=== PATIENT | female | born 1935 | race Caucasian/White ===

== ENCOUNTER 2019-01-15 11:52 | Emergency (ER) | payer MEDICARE, OTHER ==
--- NOTE | 2019-01-15 12:42 | ED ---
Complex/Multi-Sys Presentation - HPI Summary HPI Summary: This pt is an 83 y/o female presenting to [facility] c/o abdominal distension for the past 1 month now. Pt reports she also has swelling in her legs and mild SOB. She denies fever, chest pain, nausea, vomiting, abd pain. Son states pt's PCP told them pt had ascites and it was probably related to her liver. Pt was then referred to a director of intercollegiate athletics, Dr. Hernandez, who told them pt had more of a heart condition than a liver one. Pt was prescribed a diuretic with some relief of swelling in her legs. Her director of intercollegiate athletics also increased her diuretic dose. Per son, they were told that taking Amiodarone was damaging pt's liver. The last time pt saw Dr. Hernandez's INFORMATION WRITER was last week. Pt has an upcoming appointment in January 30 to replace her original pacemaker. - History Of Current Complaint Chief Complaint: EDAbdPain Hx Obtained From: Patient, Family/Telephone Engineer - Santhosh Gonzalez Onset/Duration: Lasting Weeks, Still Present Timing: Weeks Severity Currently: Moderate Location: Negative Aggravating Factor(s): nothing Alleviating Factor(s): nothing Associated Signs And Symptoms: Positive: SOB, Edema - in legs, Other - POSITIVE : abd distension.. Negative: Chest Pain, Nausea, Vomiting, Abdominal Pain, Fever - Allergies/Home Medications Allergies/Adverse Reactions: Allergies Allergy/AdvReac Type Severity Reaction Status Date / Time Sulfa (Sulfonamide Allergy Unknown Verified 01/15/19 13:34 Antibiotics) Reaction Details sulfamethoxazole Allergy Unknown Verified 01/15/19 13:34 [From Bactrim] Reaction Details trimethoprim [From Bactrim] Allergy Unknown Verified 01/15/19 13:34 Reaction Details Home Medications: Home Medications Acetaminophen TAB* [Tylenol TAB*] 650 mg PO Q6H PRN 01/15/19 [History Confirmed 01/15/19] Cholecalciferol (Vitamin D3) [Vitamin D3] 2,000 unit PO DAILY 01/15/19 [History Confirmed 01/15/19] Levothyroxine TAB* [Synthorid 112 MCG TAB*] 112 mcg PO QAM 01/15/19 [History Confirmed 01/15/19] Midodrine HCl 5 mg PO TID 01/15/19 [History Confirmed 01/15/19] Potassium Chloride [K-Tab ER] 64 meq PO DAILY 01/15/19 [History Confirmed ] Torsemide TAB* [Demadex 20 MG*] 20 mg PO QAM 01/15/19 [History Confirmed ] Warfarin TAB(*) [Coumadin TAB(*)] 1 - 2 mg PO DAILY 01/15/19 [History Confirmed 01/15/19] PMH/Surg Hx/FS Hx/Imm Hx Endocrine/Hematology History: Reports: Hx Thyroid Disease, Hx Anemia Denies: Hx Diabetes Cardiovascular History: Reports: Hx Atrial Fibrillation, Hx Hypercholesterolemia , Hx Hypertension, Hx Pacemaker/ICD - PUT IN 07/21/2015, Other Cardiovascular Problems/Disorders - a fib, orthostatic hypotension Denies: Hx Angina, Hx Congestive Heart Failure, Hx Coronary Artery Disease, Hx Myocardial Infarction, Hx Valvular Heart Disease Respiratory History: Denies: Hx Asthma, Hx Chronic Obstructive Pulmonary Disease (COPD) History: Denies: Hx Chronic Renal Failure, Hx Renal Disease Musculoskeletal History: Reports: Hx Arthritis - LEFT KNEE, Other Musculoskeletal History - BROKE LEFT FEMUR Comment Only: 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 SQAMOUS CELL CA, LT ANKLE. TONSILECTOMY Hx Anesthesia Reactions: No - Immunization History Immunizations Up to Date: Yes Infectious Disease History: No Infectious Disease History: Denies: Traveled Outside the [place] in Last 30 Days - Family History Known Family History: Positive: Cardiac Disease - Mother with mitral valve repair Family History: Father with lung CA - Social History Alcohol Use: None Alcohol Amount: recently quit Hx Substance Use: No Substance Use Type: Reports: None Hx Tobacco Use: Yes Smoking Status (MU): Former Smoker Have You Smoked in the Last Year: No Review of Systems Negative: Fever, Chills Negative: Chest Pain Positive: Shortness Of Breath Gastrointestinal: Other - POSITIVE: abdominal distension Negative: Abdominal Pain, Vomiting, Nausea Positive: Edema - in legs All Other Systems Reviewed And Are Negative: Yes Physical Exam - Summary Physical Exam Summary: VITAL SIGNS: Reviewed. GENERAL: Patient is a well-developed and nourished female who is lying comfortable in the stretcher. Patient is not in any acute respiratory distress. HEAD AND FACE: No signs of trauma. No ecchymosis, hematomas or skull depressions. No sinus tenderness. EYES: PERRLA, EOMI x 2, No injected conjunctiva, no nystagmus. EARS: Hearing grossly intact. Ear canals and tympanic membranes are within normal limits. MOUTH: Oropharynx within normal limits. NECK: Supple, trachea is midline, no adenopathy, no JVD, no carotid bruit, no c- spine tenderness, neck with full ROM. CHEST: Symmetric, no tenderness at palpation LUNGS: Decreased breath sounds in both bases of the lungs. CVS: Regular rate and rhythm, S1 and S2 present, no murmurs or gallops appreciated. ABDOMEN: Soft, non-tender. Abdominal distension. No rebound, no guarding, and no masses palpated. Bowel sounds are normal. EXTREMITIES: FROM in all major joints, no cyanosis or clubbing. Bilateral lower extremity edema. NEURO: Alert and oriented x 3. No acute neurological deficits. Speech is normal and follows commands. SKIN: Dry and warm Triage Information Reviewed: Yes Vital Signs On Initial Exam: Initial Vitals Temp Pulse Resp BP Pulse Ox 97.9 F 82 16 135/69 95 01/15/19 11:56 01/15/19 11:56 01/15/19 11:56 01/15/19 11:56 01/15/19 11:56 Vital Signs Reviewed: Yes Diagnostics - Vital Signs Vital Signs Temp Pulse Resp BP Pulse Ox 01/15/19 12:11 70 18 160/85 98 01/15/19 12:10 71 97 01/15/19 11:56 97.9 F 82 16 135/69 95 - Laboratory Result Diagrams: 01/15/19 12:51 01/15/19 12:51 Lab Statement: Any lab studies that have been ordered have been reviewed, and results considered in the medical decision making process. - Radiology Chest XR Radiology Interpretation Completed By: Radiologist Summary of Radiographic Findings: IMPRESSION: No active cardiopulmonary disease. Dr. Calles has reviewed this report. - Ultrasound No standard instances Ultrasound Interpretation Completed By: Radiologist Summary of Ultrasound Findings: Abdomen US IMPRESSION: Moderate amount of ascites is noted in all [address] Calles has reviewed this report. - EKG 12:46 Cardiac Rate: NL - at 66 bpm Summary of EKG Findings: Atrial paced at [address] elevations. Re-Evaluation - Re-Evaluation First Eval Re-Evaluation Time: 16:05 Comment: Reviewed lab, ultrasound, CXR results with pt and [id number]. Pt will be discharged home with follow up from her PCP tomorrow. Complex Multi-Symp Course/Dx Assessment/Plan: This pt is an 83 y/o female presenting to [facility] c/o abdominal distension for the past 1 month now. Pt reports she also has swelling in her legs and mild SOB. She denies fever, chest pain, nausea, vomiting, abd pain. Son states pt's PCP told them pt had ascites and it was probably related to her liver. Pt was then referred to a director of intercollegiate athletics, Dr. Hernandez, who told them pt had more of a heart condition than a liver one. Pt was prescribed a diuretic with some relief of swelling in her legs. Her director of intercollegiate athletics also increased her diuretic dose. Per son, they were told that taking Amiodarone was damaging pt's liver. The last time pt saw Dr. Hernandez's INFORMATION WRITER was last week. Pt has an upcoming appointment in January 30 to replace her original pacemaker. Blood work without any significant abnormality except for INR 2.13, BUN is 26, creatinine 1.1, glucose 148, AST 40, CRP of 23.8 and BNP 367. Urinalysis positive for UTI. Abdominal ultrasound impression: Moderate amount of ascites is noted in all 4 quadrants. The patient doesnt have any shortness of breath. Therefore, I do not believe that the patient needs paracentesis today. However, she will need to be scheduled for a paracentesis with a primary care physician as an outpatient. I discussed the findings and test results and the plan with the patient and the patients [id number], and they understand and agree. The patient is hemodynamically stable, therefore the patient will be discharged home with follow-up from her PCP. Patient reports that she has an appointment to see her PCP tomorrow. - Diagnoses Provider Diagnoses: Ascites, UTI (urinary tract infection) Discharge - Sign-Out/Discharge Documenting (check all that apply): Patient Departure - Discharge home Patient Received Moderate/Deep Sedation with Procedure: No - Discharge Plan Condition: Stable Disposition: HOME Prescriptions: Cephalexin CAP* [Keflex CAP*] 500 mg PO TID #21 cap Patient Education Materials: Urinary Tract Infection in Women (ED), Ascites (ED ) Referrals: uPshpa Juares MD [Primary Care Provider] - Additional Instructions: FOLLOW UP WITH YOUR PRIMARY CARE PROVIDER IN 2-3 DAYS. RETURN TO THE ED FOR ANY NEW OR WORSENING SYMPTOMS. - Attestation Statements Document Initiated by Scribe: Yes Documenting Scribe: Sherrie Moeller Provider For Whom Scribe is Documenting (Include Credential): Derek Calles MD Scribe Attestation: Sherrie Allen scribed for Derek Calles MD on 01/15/19 at 1744. Status of Scribe Document: Ready
[2019-01-15 13:02] LABS: ABS Basophils 0.1 10^3/ul (0-0.2); ABS Lymphocytes 1.3 10^3/ul (1.0-4.8); ABS Monocytes 0.6 10^3/ul (0-0.8); ABS Neutrophils 6.4 10^3/ul (1.5-7.7); Eosinophil % 0.3 %; Hematocrit 38 % (35-47); Hemoglobin 12.6 g/dL (12.0-16.0); Lymphocyte % 15.3 %; Mean Corpuscular HGB Conc 33 g/dL (31-36); Mean Corpuscular Hemoglobin 33 pg (27-31); Mean Corpuscular Volume 99 fL (80-97); Mean Platelet Volume 8.3 fL (7.4-10.4); Platelet Count 227 10^3/uL (150-450); Red Blood Count 3.87 10^6 /uL (3.70-4.87); Red Cell Distribution Width 15 % (10-15); White Blood Count 8.3 10^3/uL (3.5-10.8)
[2019-01-15 13:02] LABS: Urine Appearance Cloudy; Urine Bacteria 1+ (Absent); Urine Bilirubin Negative (Negative); Urine Blood Negative (Negative); Urine Color Yellow; Urine Glucose Negative (Negative); Urine Ketones Negative (Negative); Urine Nitrite Positive (Negative); Urine Protein Negative (Negative); Urine Red Blood Cell Absent (Absent); Urine Specific Gravity 1.012 (1.010-1.030); Urine Squamous Epithelial Cell Present (Absent); Urine Urobilinogen Negative (Negative); Urine White Blood Cell 3+(>20/hpf) (Absent)
[2019-01-15 13:18] LABS: Albumin 2.9 g/dL (3.2-5.2); Albumin/Globulin Ratio 0.8 (1-3); BUN/Creatinine Ratio 23.6 (8-20); C Reactive Protein 23.88 mg/L (<8.01); Calcium 8.7 mg/dL (8.6-10.3); EGFR African American 57.7 (>60); EGFR Non-African American 47.7 (>60); Globulin 3.8 g/dL (2-4); Potassium 3.5 mmol/L (3.5-5.0); Total Bilirubin 1.1 mg/dL (0.2-1.0); Total Protein 6.7 g/dL (6.4-8.9)
[2019-01-15 13:22] LABS: CKMB ng/mL 1.2 ng/mL (0.6-6.3)
[2019-01-15 13:28] LABS: Activated Partial Thrombo Time 40.4 seconds (26.0-38.0); INR 2.13 (0.82-1.09)
[2019-01-15] MEDS ORDERED: cefTRIAXone(*) 1 GM in NS 0.9% 50 ML* 50 ML IVPB ONE (14:18)
[2019-01-15 16:26] VITALS: BP 162/85
--- NOTE | 2019-01-17 06:32 | PN ---
Progress Note - Progress Note Date of Service: 01/17/19 Note: Patient's urine culture grew Klebsiella pneumonia greater than 100,000. Patient placed on Keflex will wait for final culture for sensitivity.
--- NOTE | 2019-01-18 05:52 | PN ---
Progress Note - Progress Note Date of Service: 01/18/19 Note: Patient placed on Keflex. Final culture shows is sensitive to. No further action required.
== END 2019-01-15 16:24 | disposition home or self-care (01) ==
LOC: ED 11:52 → MERGE 11:52 → ED 16:24
DX: R18.8 Other ascites (principal); N39.0 Urinary tract infection, site not specified; E07.9 Disorder of thyroid, unspecified; I48.91 Unspecified atrial fibrillation; I10 Essential (primary) hypertension; Z95.810 Presence of automatic (implantable) cardiac defibrillator; Z79.01 Long term (current) use of anticoagulants; Z79.899 Other long term (current) drug therapy; Z87.891 Personal history of nicotine dependence
CPT/HCPCS: 36415; 71046; 76705; 80053; 81003; 81015; 82550; 82553; 83605; 83690; 83880; 84484; 85025; 85610; 85730; 86140; 87077; 87086; 87186; 93005; 96365; 99283; J0696

== ENCOUNTER 2019-01-27 12:55 | Observation (INO) | payer MEDICARE, OTHER ==
--- NOTE | 2019-01-27 13:17 | ED ---
Complex/Multi-Sys Presentation - HPI Summary HPI Summary: Patient is a 83 y/o F presenting to ED via EMS for N/V, possible seizure episode. EMS states that they received a call about the patient having episodes of vomiting. Upon arrival, EMS reports that they were told that the [facility] her phthalic acid purifier when she had what the phthalic acid purifier describes as seizure-like activity. However, it is uncertain if the patient actually had a seizure. The patient had a stroke in 2014 with Sx that are reported to have been similar to those exhibited by the patient during today's episode. Patient had a negative [place] scale and is alert and oriented x3 at present. EMS notes that the patient was somewhat disoriented upon arrival but not to the point of her being in a post-ictal state. EMS reports that the patient had decreased left-sided talent development manager strength as a residual from her 2015 stroke. Heavy Equipment Plumbing Supervisor had stated that the patient had been "sick" all week but the patient refutes this. Nausea is reported to have resolved. BP of 160/85, BG 167. PMHx of afib. Patient is unsure of home medications, she notes that her caregiver will bring a list of her medications. On triage, pain is denied, nothing is noted to aggravate/alleviate Sx. Allergies reviewed. - History Of Current Complaint Hx Obtained From: Patient Onset/Duration: Lasting Weeks - phthalic acid purifier had reported that the patient had been sick for the past week but the patient denies this, Resolved Timing: Intermittent, Lasting:, Weeks - phthalic acid purifier had reported that the patient had been sick for the past week but the patient denies this Severity Currently: None Aggravating Factor(s): nothing Alleviating Factor(s): nothing Associated Signs And Symptoms: Positive: Nausea, Vomiting, Other - positive - possible seizure activity - Allergies/Home Medications Allergies/Adverse Reactions: Allergies Allergy/AdvReac Type Severity Reaction Status Date / Time Sulfa (Sulfonamide Allergy Unknown Verified 01/15/19 13:34 Antibiotics) Reaction Details sulfamethoxazole Allergy Unknown Verified 01/15/19 13:34 [From Bactrim] Reaction Details trimethoprim [From Bactrim] Allergy Unknown Verified 01/15/19 13:34 Reaction Details PMH/Surg Hx/FS Hx/Imm Hx Endocrine/Hematology History: Reports: Hx Thyroid Disease, Hx Anemia Denies: Hx Diabetes Cardiovascular History: Reports: Hx Atrial Fibrillation, Hx Hypercholesterolemia , Hx Hypertension, Hx Pacemaker/ICD, Other Cardiovascular Problems/Disorders - a fib, orthostatic hypotension Denies: Hx Angina, Hx Congestive Heart Failure, Hx Coronary Artery Disease, Hx Myocardial Infarction, Hx Valvular Heart Disease Respiratory History: Denies: Hx Asthma, Hx Chronic Obstructive Pulmonary Disease (COPD) History: Denies: Hx Chronic Renal Failure, Hx Renal Disease Musculoskeletal History: Reports: Hx Arthritis - LEFT KNEE, Other Musculoskeletal History - BROKE LEFT FEMUR Comment Only: 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 SQAMOUS CELL CA, LT ANKLE. TONSILECTOMY Hx Anesthesia Reactions: No - Family History Known Family History: Positive: Cardiac Disease - Mother with mitral valve repair Family History: Father with lung CA - Social History Alcohol Use: None Alcohol Amount: recently quit Hx Substance Use: No Substance Use Type: Reports: None Hx Tobacco Use: Yes Smoking Status (MU): Former Smoker Have You Smoked in the Last Year: No Review of Systems Positive: Vomiting, Nausea Neurological: Other - positive - possible seizure activity All Other Systems Reviewed And Are Negative: Yes Physical Exam - Summary Physical Exam Summary: Appearance: The patient is well-nourished in no acute distress and in no acute pain. Skin: The skin is warm and dry and skin color reflects adequate perfusion. HEENT: The head is normocephalic and atraumatic. The pupils are equal and reactive. The conjunctivae are clear and without drainage. Nares are patent and without drainage. Mouth reveals moist mucous membranes and the throat is without erythema and exudate. The external ears are intact. The ear canals are patent and without drainage. The tympanic membranes are intact. Neck: The neck is supple with full range of motion and non-tender. There are no carotid bruits. There is no neck vein distension. Respiratory: Chest is non-tender. Wheezes and upper respiratory sounds in both lung tarango. Cardiovascular: Heart is regular rate and rhythm. There is no murmur or rub auscultated. There is no peripheral edema and pulses are symmetrical and equal. Abdomen: The abdomen is soft and non-tender. There are normal bowel sounds heard in all four quadrants and there is no organomegaly palpated. Musculoskeletal: There is no back tenderness noted. Extremities are non-tender with full range of motion. There is good capillary refill. There is no peripheral edema or calf tenderness elicited. Neurological: Patient is alert and oriented to person, place and time. The patient has symmetrical motor strength in all four extremities. Cranial nerves are grossly intact. Deep tendon reflexes are symmetrical and equal in all four extremities. GCS 15, NIH 0 Psychiatric: The patient has an appropriate affect and does not exhibit any anxiety or depression. Triage Information Reviewed: Yes Vital Signs On Initial Exam: Initial Vitals Temp Pulse Resp BP Pulse Ox 97.9 F 73 24 155/70 94 01/27/19 13:02 01/27/19 13:02 01/27/19 13:02 01/27/19 13:02 01/27/19 13:02 Vital Signs Reviewed: Yes - Sandi Coma Scale Best Eye Response: 4 - Spontaneous Best Motor Response: 6 - Obeys Commands Best Verbal Response: 5 - Oriented Coma Scale Total: 15 Diagnostics - Laboratory Result Diagrams: 01/27/19 13:54 01/27/19 13:54 Lab Statement: Any lab studies that have been ordered have been reviewed, and results considered in the medical decision making process. - Radiology CXR Radiology Interpretation Completed By: Radiologist Summary of Radiographic Findings: IMPRESSION: No radiographic evidence for acute cardiopulmonary abnormality on this. portable chest x-ray. THIS REPORT WAS REVIEWED BY DR. WILSON. - EKG 1336 Cardiac Rate: Other Rate - EKG showed paced rhythm with rate of 80 BPM Summary of EKG Findings: EKG showed paced rhythm with rate of 80 BPM National Institutes Of Health - NIH Scale Level of Consciousness: Alert/Keenly Responsive Ask Patient the Month and His/Her Age: Both Correct Ask Pt to Open/Close Eyes and Neck Fitter/Release Non-Paretic Hand: Both Correctly Best Gaze (Only Horizontal Eye Movement): Normal Visual Field Testing: No Visual Loss Facial Paresis-Pt to Smile & Close Eyes or Grimace Symmetry: Normal/Symmetrical Motor Function - Right Arm: No Drift-Holds 10 Seconds Motor Function - Left Arm: No Drift-Holds 10 Seconds Motor Function - Right Leg: No Drift-Holds 10 Seconds Motor Function - Left Leg: No Drift-Holds 10 Seconds Limb Ataxia-Must be out of Proportion to Weakness Present: Absent Sensory (Use Pinprick to Test Arms/Legs/Trunk/Face): Normal Best Language (Describe Picture, Name Items): No Aphasia Dysarthria (Read Several Words): Normal Extinction and Inattention: No Abnormality Total Score: 0 Re-Evaluation - Re-Evaluation First Eval Re-Evaluation Time: 15:47 Comment: Results of labs and tests were discussed with patient. Will discuss patient's case with hospitalist. PO challenge to be done. Second Eval Re-Evaluation Time: 15:58 Comment: Patient failed PO challenge, patient is vomiting. Complex Multi-Symp Course/Dx Course Of Treatment: It was unclear to me whether Ms. De La Paz was syncopal and had seizure-like activity with some reproduction of her previous stoke manifestations while hypotensive or if she had a seizure related to the previous stroke. I asked the hospitalist to evaluate her. They consulted the neurologist Dr. Daigle who felt the patient should be transferred to rule out continuing or recurring seizures. - Diagnoses Provider Diagnoses: Syncope - Physician Notifications Discussed Care Of Patient With: Nikolas Milligan Time Discussed With Above Provider: 15:53 Instructed by Provider To: Other - 1553 - Patient's case was discussed with Dr. Milligan, hospitalist services to evaluate the patient. 1727 - Hospitalist PA reports that she has consulted with Dr. Daigle about the patient's case and the patient requires transfer to a higher level of care for EEG monitoring. Discharge - Sign-Out/Discharge Documenting (check all that apply): Sign-Out Patient Signing out patient TO: Armen Concepcion Receiving patient FROM: Armen Wilson Patient Received Moderate/Deep Sedation with Procedure: No - Discharge Plan Condition: Stable Referrals: Pushpa Juares MD [Primary Care Provider] - - Billing Disposition and Condition Condition: STABLE - Attestation Statements Document Initiated by Scribe: No Scribe Documentation Reviewed: No
[2019-01-27 14:01] LABS: ABS Basophils 0.1 10^3/ul (0-0.2); ABS Lymphocytes 1.1 10^3/ul (1.0-4.8); ABS Monocytes 0.5 10^3/ul (0-0.8); ABS Neutrophils 7.8 10^3/ul (1.5-7.7); Eosinophil % 0.3 %; Hematocrit 40 % (35-47); Hemoglobin 13.2 g/dL (12.0-16.0); Lymphocyte % 11.4 %; Mean Corpuscular HGB Conc 33 g/dL (31-36); Mean Corpuscular Hemoglobin 33 pg (27-31); Mean Corpuscular Volume 99 fL (80-97); Mean Platelet Volume 8.3 fL (7.4-10.4); Platelet Count 280 10^3/uL (150-450); Red Cell Distribution Width 16 % (10-15); White Blood Count 9.5 10^3/uL (3.5-10.8)
[2019-01-27 14:06] LABS: INR 2.11 (0.82-1.09)
[2019-01-27 14:18] LABS: Albumin 2.8 g/dL (3.2-5.2); Albumin/Globulin Ratio 0.7 (1-3); BUN/Creatinine Ratio 26.5 (8-20); Calcium 9.1 mg/dL (8.6-10.3); EGFR African American 62.9 (>60); Magnesium 1.9 mg/dL (1.9-2.7); Potassium 4.7 mmol/L (3.5-5.0); Total Bilirubin 1.3 mg/dL (0.2-1.0); Total Protein 6.8 g/dL (6.4-8.9)
[2019-01-27 14:19] LABS: Troponin I 0.01 ng/mL (<0.04)
[2019-01-27 14:39] LABS: TSH (Thyroid Stimulating Horm) 24.63 mcIU/mL (0.34-5.60)
[2019-01-27] MEDS ORDERED: Ondansetron INJ* 2 MG/ML VIAL IV ONE (16:20)
[2019-01-27] MEDS ORDERED: Furosemide IV* 10 MG/ML 2 ML VIAL (20 MG) IV SLOW PU ONE (19:26)
--- NOTE | 2019-01-27 19:51 | ED ---
Progress - Progress Note Progress Note: Pt is a sign out from Dr. Wilson to Dr. Concepcion at shift change 1900 01/27/19 pending a transfer to another facility for an EEG. - Results/Orders Results/Orders: Pt received a brain CT at 2016 which shows No acute intracranial findings. Age- related atrophy and chronic white matter ischemic change. ED physician has reviewed this report. Re-Evaluation - Re-Evaluation First Eval Re-Evaluation Time: 15:47 Second Eval Re-Evaluation Time: 15:58 Course/Dx - Course Course Of Treatment: Pt is a sign out from Dr. Wilson to Dr. Concepcion at shift change 1900 01/27/19 pending a transfer to another facility for an EEG. The pt's brain CT was returned during this shift and found No acute intracranial findings. Age-related atrophy and chronic white matter. ischemic change. Pt was admitted to [facility] per Dr. Arauz. - Diagnoses Provider Diagnoses: Syncope - Provider Notifications Discussed Care Of Patient With: Keshav Arauz Time Discussed With Above Provider: 21:00 Instructed by Provider To: Admit As Inpatient Admit/Transition Orders Completed By ED Provider: Yes Discharge - Sign-Out/Discharge Documenting (check all that apply): Patient Departure - admitted All imaging exams completed and their final reports reviewed: Yes Patient Received Moderate/Deep Sedation with Procedure: No - Discharge Plan Condition: Stable Disposition: ADMITTED TO [facility] - Billing Disposition and Condition Condition: STABLE Disposition: Admitted to [facility] - Attestation Statements Document Initiated by Prudence: Yes Documenting Scribe: Benito Taylor Provider For Whom Prudence is Documenting (Include Credential): Armen Concepcion MD Scribe Attestation: Benito Allen scribed for Armen Concepcion MD on 01/28/19 at 0609. Scribe Documentation Reviewed: Yes Provider Attestation: The documentation as recorded by the Benito vogt accurately reflects the service I personally performed and the decisions made by Armen murphy MD Status of Scribe Document: Viewed
[2019-01-27] MEDS ORDERED: Ondansetron INJ* 2 MG/ML VIAL IV PRN (20:34)
[2019-01-27] MEDS ORDERED: Senna TAB PO PRN (20:34)
[2019-01-27] MEDS ORDERED: Al Hydrox/Mg Hydrox/Simet LIQ* 30 ML UDC PO PRN (20:34)
[2019-01-27] MEDS ORDERED: Acetaminophen TAB* 325 MG PO PRN (20:34)
[2019-01-27] MEDS ORDERED: Enoxaparin(*) 40 MG/0.4 ML SYR SUBCUT SCH (21:00)
[2019-01-27] MEDS ORDERED: Baclofen TAB* 10 MG PO SCH (22:00)
--- NOTE | 2019-01-27 22:41 | HP ---
CC: Dr. Juares; Dr. Olayinka Daigle * DATE OF ADMISSION: 01/27/19 REASON FOR CONSULT: Possible seizure. REQUESTING PROVIDER: Dr. Wilson. ATTENDING PROVIDER: Keshav Arauz MD * (DICTATED BY CRISSY MOSLEY) HISTORY OF PRESENT ILLNESS: Kinza De La Paz is an 83-year-old white female with past medical history significant for hypertension, paroxysmal atrial fibrillation, tachybrady syndrome with left chamber pacemaker, CVA with residual left-sided weakness, cardiomyopathy with ejection fraction 30%, non- alcoholic cirrhosis, hypothyroidism, and autonomic dysreflexia who presented to the emergency department due to being unresponsive in [facility] with her home health aide. The patient reports that she was feeling unwell when she was in [facility] and felt generally weak all over and then sat in her walker. She then does not have memory of the falling incident, but it was reported by her home health aide Sofie that she then became unresponsive and fell to the floor and was having shaking of her extremities. She lost control of her bowels and had a bowel movement and was biting her tongue as well. She was unresponsive during this incident. The patient again does not have memory of this. The patient and her family members report she has never had a seizure before leading up to this event and after this event today. She denies fever, chills, abdominal pain, hematemesis, and chest pain. She reports that she has some feelings of difficulty breathing. Additionally, she was feeling lightheaded leading up to this incident. They also reports that she vomited during her episode of loss of consciousness. Apparently, she has been having for several weeks mild difficulty breathing with exertion, which is why she has had echocardiogram and cardiac catheterization in the recent months. Reported additionally she had a paracentesis in early December performed by Dr. Rodriguez and removed 5.25 L of ascites fluid which apparently then reaccumulated in 10 days. The patient takes a long time to answer questions during history and the family reports that this is her unlike usual self. She does at times have difficultly following commands and the family additionally reports that this is unlike the patient's usual self. PAST MEDICAL HISTORY: 1. Hypertension. 2. Paroxysmal atrial fibrillation. 3. CVA with residual left-sided weakness. 4. Tachybrady syndrome with left chamber PPM. 5. Cardiomyopathy with ejection fraction of 30%. 6. Squamous cell skin cancer. 7. Hypothyroidism. 8. Frequent UTIs. 9. Hypercholesterolemia. 10. Cirrhosis, likely nonalcoholic. 11. Back pain. 12. Osteoarthritis. 13. Autonomic dysreflexia. 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 PAST SURGICAL HISTORY: 1. Breast biopsy. 2. Resection of squamous cell carcinoma. 3. Tonsillectomy. 4. Left ORIF tib fib. 5. Hip fracture repair. 6. Pacemaker placement. 7. Recent paracentesis in early December 2018. HOME MEDICATIONS: 1. Potassium chloride 8 mEq a.c. p.o. 2. Levothyroxine 125 mcg p.o. daily. 3. Baclofen 5 mg p.o. t.i.d. 4. Amiodarone 200 mg p.o. daily. 5. Midodrine 5 mg p.o. t.i.d. 6. Torsemide 20 mg p.o. daily. 7. Aldactone 50 mg p.o. daily. 8. Vitamin C SR 1000 mg p.o. daily. 9. Vitamin D3 2000 units p.o. daily. 10. Warfarin 1 mg p.o. daily. 11. Lipitor 20 mg daily. 12. Glucosamine/chondroitin 500/400 mg p.o. daily. ALLERGIES: SULFA and TRIMETHOPRIM. FAMILY HISTORY: Father at age 63 of lung cancer. Mother at 76 after CABG, had atrial fibrillation and coronary artery disease. SOCIAL HISTORY: The patient lives alone, her in 2016 due to stroke. She has a daughter, a son, an adopted daughter, and multiple stepchildren, several of which were involved in her life. She has a home health aide who is at her home almost daily, but not 24x7. She denies current tobacco use, alcohol use, or illicit drug use. She did quit smoking for about 50 years ago and had less than 10 years of smoking. REVIEW OF SYSTEMS: An 11-point review of systems was completed. No pertinent positives other than above in the HPI. Other systems are negative. PHYSICAL EXAM: General: Thin elderly white female, lying upright in hospital bed, appearing comfortable. Eyes: Difficult to assess due to poor cooperation with neurological exam; however, appears that there is no nystagmus and appears EOMI. Sclerae anicteric. Unable to asses visual tarango by confrontation. ENT: Mucous membranes moist. Evident lacerations to tongue on bilateral lateral aspects. Neck: Supple without JVD. Cardio: Regular rate and rhythm without murmurs, rubs, or gallops. Lungs: Faint crackles in bilateral lung bases. Abdomen: Normoactive bowel sounds x4 quadrants, distended, nontender to palpation, unable to assess hepatomegaly due to distention. Extremities: No clubbing, cyanosis or edema. Neuro: 4/5 snap attacher strength on the left side, 4/5 hip flexion strength on the left side, 4/5 elbow extension and flexion on the left side. Strength 5/5 of all movements on the right side. This is apparently consistent with her left-sided residual weakness since her previous stroke. Unable to assess Romberg's sign due to poor cooperation of patient. Sensation to light touch intact throughout. Face is symmetrical. Cranial Nerves: II through XII grossly intact. Unable to assess ataxia appropriately due to poor cooperation of patient, but she does appear to have some left-sided ataxia of the upper extremity. The patient is oriented to self, location, situation but not time, is delayed to answer questions. Speech is clear. Skin : Warm, dry, and intact. There are small petechiae noted to left lower extremity and large petechiae in bilateral upper extremities. DIAGNOSTIC STUDIES/LAB DATA: EKG: Paced rhythm, 80 beats per minute. No ST depressions or elevations. Slight T-wave inversion in aVL, isolated. 1. Chest x-ray: No radiographic evidence for acute cardiopulmonary abnormality on this portable chest x-ray. By my read, there does appear to be some small pleural effusions bilaterally due to costophrenic blunting. 2. TSH 24.63, lactic acid 2.1, INR 2.11. White blood cell count 9.5, hemoglobin 13.2, hematocrit 40, platelets 280,000, albumin 2.8, total bili 1.3, AST 38, ALT 13, alk phos 104. ASSESSMENT AND PLAN: Kinza De La Paz is an 83-year-old white male with past medical history significant for paroxysmal atrial fibrillation, cerebrovascular accident, tachybrady syndrome with left chamber permanent pacemaker, cardiomyopathy with ejection fraction of 30%, hypertension, hypothyroidism, and cirrhosis with recent paracentesis who presents to the emergency department due to possible witnessed seizure. 1. I discussed this case with neurologist, Dr. Olayinka Daigle because it appears that what the patient experienced was a seizure given that she lost control of her bowels and bit her tongue and did have what appeared to be possibly some convulsions and due to her current symptoms of still having delayed ability to follow command and appearing somewhat confused, Dr. Daigle is concerned that she may be continuing to have a seizure. Because it is a Monday and this facility does not perform EEG on Sundays, he does have concern that she is continuing to seize and we are unable to assess this. He believes that this patient needs to be transferred to a different facility that is able to perform EEG on this day to confirm if the patient is still having a seizure to provide proper management for the patient's safety. 2. Hypothyroidism. The patient is noted to have hypothyroidism and takes Synthroid daily. She at this time has TSH of 24.63. It appears that she has had some outpatient workup regarding this with shipfitter helper, Dr. Sapp as well as with her primary care provider. It may be of benefit to utilize other medications to control the patient's atrial fibrillation and she could discontinue amiodarone and followup free T3, free T4 labs are indicated possibly as well as thyroid ultrasound; however, it does appear she has thyroid ultrasound in October 2018 indicating anechoic lesions in the left aspect of her thyroid as well as some hyperechoic nodules . 3. Pleural effusions. It is possible this is paper sales representative of a decompensation of her heart failure; however, the patient does have known ascites and this may be further evidence of third spacing. She is being worked up for her nonalcoholic cirrhosis and did have recent paracentesis. However, given the patient is feeling short of breath and has some small pleural effusions, it may be likely to have IV diuretics at this time. I will order one time IV Lasix and otherwise, the patient's home torsemide can be continued in the future. 4. Paroxysmal atrial fibrillation. The patient is rate controlled at this time (on Coumadin). 5. Hypertension. The patient is overall normotensive except for her systolic blood pressure 169 at one time, otherwise within normal limits in her home. 6. Ascites. As per recent admission, the patient does have known nonalcoholic cirrhosis and is being worked up by Dr. Rodriguez and did have recent paracentesis approximately 5 weeks ago of 5.25 L removed and reaccumulation of her ascites within 10 days. She is evidently distended at this time. The patient is not in any pain at the time of evaluation. Future paracentesis should be considered should the patient become symptomatic for comfort reasons. Thank you for allowing us to participate in the care of this patient. Please feel free to contact me with any further questions. ADDENDUM TO HISTORY AND PHYSICAL: DATE OF ADMISSION: 01/27/19 PRIMARY CARE PROVIDER: Dr. Juares. CONSULTING NEUROLOGIST: Olayinka Daigle MD UPDATED ASSESSMENT: The emergency department called the transfer center to determine if the patient could be transferred for EEG today. Apparently, all local hospitals for reasonable transport also do not perform EEG on Sundays. In the interval time period, the patient did have reported resolution of her confusion, difficulty following commands. I reevaluated the patient and she did appear to be at her baseline, which is in concordance with assessment of her son who is at bedside. She does have resolution of her left-sided weakness , which apparently was her baseline, but does seem improved. PHYSICAL EXAMINATION HEENT: Head: Normocephalic, atraumatic. Eyes: PERRL. Sclerae anicteric. No nystagmus. Visual tarango by confrontation are intact. NEURO: Strength 5/5 in all extremities and equal. Sensation to light touch is intact throughout. Face is symmetrical. Speech is not garbled. The patient is alert and oriented x4. The patient is able to follow commands. Romberg sign is negative. No ataxia. PSYCH: The patient is pleasant and cooperative. ASSESSMENT AND PLAN: Kinza De La Paz is an 83-year-old white female with a past medical history significant for paroxysmal atrial fibrillation on Coumadin , cerebrovascular accident, tachybrady syndrome with left chamber PPM, cardiomyopathy with ejection fraction of 30%, hypertension, hypothyroidism, cirrhosis, and autonomic dysfunction, who presents to the emergency department via EMS due to loss of consciousness. The patient will be admitted in OBV for: 1. Possible seizure as previously stated based on the story of the patient while biting her tongue, losing bowel function and having loss of consciousness and having some apparently convulsive period. On the differential, the patient had a seizure. When I originally evaluated the patient, it was approximately 5 hours after the event and she was confused and unable to follow direction. There was hope for more urgent EEG. It was felt that she was possibly still seizing. I later reevaluated this patient approximately 3 hours later and there was resolution of this confusion and inability to follow commands and the patient was at her baseline. Therefore, it is possible that she was in a postictal phase during previous assessment or it is still possible that she was having underlying seizure, but it is felt that she is no longer having underlying seizure at this time. She will be admitted OBV to medical floor. She will be admitted to telemetry with neurological checks every 2 hours and with seizure precautions. Stat CT of the brain without contrast was ordered. Per radiology report, there are no acute findings. EEG for the morning has been ordered. There is report that the patient's pacemaker is not compatible with MRI. The patient had a mildly elevated lactic acid to 2.1 when she arrived and later normalized to 1.2. This may be further paper sales representative of a seizure activity. Dr. Daigle at this time is in agreement with the current plan and further recommends Keppra be given if the patient seizes again. 2. Ascites. This is an ongoing issue for this patient. It is being worked up outpatient. I placed an order to obtain records from Dr. Rodriguez's office. She had paracentesis with Dr. Sanchez at this facility on 12/27/18 and 5.25 L were removed and later they were accumulated 10 days later. Because the patient is asymptomatic at this time, I will not have further workup of this and we will review the labs in the morning that Dr. Rodriguez's office have already gathered. Otherwise, this is unable to be obtained or if full workup has not been completed, a hepatitis panel would be reasonable and this was felt to nonalcoholic cirrhosis per Dr. Rodriguez. Her paracentesis that was previously performed was for comfort and it does not appear this is indicated at this time as she is not symptomatic. The patient does not have a leukocytosis or fever and therefore, low concern for spontaneous bacterial peritonitis. The patient has a bilirubin of 1.3 and transaminases are within normal limits. 3. Shortness of breath. It is possible the patient has acute decompensation of her congestive heart failure due to her cardiomyopathy with ejection fraction of 30%. I gave her 1 dose of Lasix in the emergency department. Otherwise, continue her home torsemide and spironolactone. It does appear there are small pleural effusions per my evaluation on the chest x-ray, though it is unclear if this is due to her heart failure or the ascites that we know is present. We will continue to monitor and I will order a BNP as well. 4. Hypothyroidism. The patient has had workup in the outpatient setting by Dr. Gurrola as well as her primary care provider for her hypothyroidism. Of note, she is taking amiodarone. Her TSH at this admission was 4.63 and she does take Synthroid at home. I will continue her Synthroid. Ultrasound of the thyroid is performed in October that found an anechoic lesion in the left aspect of the thyroid. This does not need further workup during this hospitalization, but I will order a free T3, free T4 for the morning. 5. Atrial fibrillation. The patient is rate controlled and paced. I will continue her normal home medications of amiodarone and Coumadin. I will repeat INR tomorrow. She is currently therapeutic at 3.11. 6. Cardiomyopathy with ejection fraction of 30%. I will continue the patient' s home torsemide, spironolactone, potassium supplements. 7. Autonomic dysfunction. I will continue the patient's home midodrine. I do not believe this episode to be a simple case of syncope. 8. History of cerebrovascular accident. The patient does not have take aspirin as she is on Coumadin. I will continue her home Lipitor. 9. DVT prophylaxis: The patient is currently therapeutic on Coumadin. I will continue her home Coumadin as previously stated and therefore, further chemical prophylaxis is not indicated at this time. Of note, the patient does have petechiae; however, her H and H is stable and this could be explained by her Coumadin; however, this is within normal limits. 10. FEN. The patient is currently n.p.o. pending swallow evaluation by nursing and if the patient passes the swallow eval, she will be able to have a regular unrestricted diet. 11. Code status. The patient is a full code. Should the patient need a surrogate decision maker, she would like her son, Santhosh Licea, to make medical decisions for her. His phone number is [phone]. TIME SPENT: Approximately 60 minutes was spent on this admission. This case has been reviewed by my attending, Dr. Keshav Arauz, and he agrees with this assessment and plan of care. CRISSY MOSLEY [id number]/[facility] #: [id number]/CPS #: [id number] ABDULLAHI
[2019-01-27 23:29] LABS: Urine Appearance Cloudy; Urine Bacteria Absent (Absent); Urine Bilirubin Negative (Negative); Urine Blood Negative (Negative); Urine Color Yellow; Urine Glucose Negative (Negative); Urine Ketones Negative (Negative); Urine Nitrite Negative (Negative); Urine Protein Negative (Negative); Urine Red Blood Cell Absent (Absent); Urine Specific Gravity 1.013 (1.010-1.030); Urine Squamous Epithelial Cell Present (Absent); Urine Urobilinogen Negative (Negative); Urine White Blood Cell 3+(>20/hpf) (Absent)
--- NOTE | 2019-01-28 01:49 | HP ---
CC: Dr. Juares; Dr. Olayinka Daigle * HISTORY AND PHYSICAL: ADDENDUM: DATE OF ADMISSION: 01/27/19 PRIMARY CARE PROVIDER: Dr. Juares. CONSULTING NEUROLOGIST: Olayinka Daigle MD UPDATED ASSESSMENT: The emergency department called the transfer center to determine if the patient could be transferred for EEG today. Apparently, all local hospitals for reasonable transport also do not perform EEG on Sundays. In the interval time period, the patient did have reported resolution of her confusion, difficulty following commands. I reevaluated the patient and she did appear to be at her baseline, which is in concordance with assessment of her son who is at bedside. She does have resolution of her left-sided weakness , which apparently was her baseline, but does seem improved. PHYSICAL EXAMINATION HEENT: Head: Normocephalic, atraumatic. Eyes: PERRL. Sclerae anicteric. No nystagmus. Visual tarango by confrontation are intact. NEURO: Strength 5/5 in all extremities and equal. Sensation to light touch is intact throughout. Face is symmetrical. Speech is not garbled. The patient is alert and oriented x4. The patient is able to follow commands. Romberg sign is negative. No ataxia. PSYCH: The patient is pleasant and cooperative. ASSESSMENT AND PLAN: Kinza De La Paz is an 83-year-old white female with a past medical history significant for paroxysmal atrial fibrillation on Coumadin , cerebrovascular accident, tachybrady syndrome with left chamber PPM, cardiomyopathy with ejection fraction of 30%, hypertension, hypothyroidism, cirrhosis, and autonomic dysfunction, who presents to the emergency department via EMS due to loss of consciousness. The patient will be admitted in OBV for: 1. Possible seizure as previously stated based on the story of the patient while biting her tongue, losing bowel function and having loss of consciousness and having some apparently convulsive period. On the differential, the patient had a seizure. When I originally evaluated the patient, it was approximately 5 hours after the event and she was confused and unable to follow direction. There was hope for more urgent EEG. It was felt that she was possibly still seizing. I later reevaluated this patient approximately 3 hours later and there was resolution of this confusion and inability to follow commands and the patient was at her baseline. Therefore, it is possible that she was in a postictal phase during previous assessment or it is still possible that she was having underlying seizure, but it is felt that she is no longer having underlying seizure at this time. She will be admitted OBV to medical floor. She will be admitted to telemetry with neurological checks every 2 hours and with seizure precautions. Stat CT of the brain without contrast was ordered. Per radiology report, there are no acute findings. EEG for the morning has been ordered. There is report that the patient's pacemaker is not compatible with MRI. The patient had a mildly elevated lactic acid to 2.1 when she arrived and later normalized to 1.2. This may be further assistance representative of a seizure activity. Dr. Daigle at this time is in agreement with the current plan and further recommends Keppra be given if the patient seizes again. 2. Ascites. This is an ongoing issue for this patient. It is being worked up outpatient. I placed an order to obtain records from Dr. Rodriguez's office. She had paracentesis with Dr. Sanchez at this facility on 12/27/18 and 5.25 L were removed and later they were accumulated 10 days later. Because the patient is asymptomatic at this time, I will not have further workup of this and we will review the labs in the morning that Dr. Rodriguez's office have already gathered. Otherwise, this is unable to be obtained or if full workup has not been completed, a hepatitis panel would be reasonable and this was felt to nonalcoholic cirrhosis per Dr. Rodriguez. Her paracentesis that was previously performed was for comfort and it does not appear this is indicated at this time as she is not symptomatic. The patient does not have a leukocytosis or fever and therefore, low concern for spontaneous bacterial peritonitis. The patient has a bilirubin of 1.3 and transaminases are within normal limits. 3. Shortness of breath. It is possible the patient has acute decompensation of her congestive heart failure due to her cardiomyopathy with ejection fraction of 30%. I gave her 1 dose of Lasix in the emergency department. Otherwise, continue her home torsemide and spironolactone. It does appear there are small pleural effusions per my evaluation on the chest x-ray, though it is unclear if this is due to her heart failure or the ascites that we know is present. We will continue to monitor and I will order a BNP as well. 4. Hypothyroidism. The patient has had workup in the outpatient setting by Dr. Gurrola as well as her primary care provider for her hypothyroidism. Of note, she is taking amiodarone. Her TSH at this admission was 4.63 and she does take Synthroid at home. I will continue her Synthroid. Ultrasound of the thyroid is performed in October that found an anechoic lesion in the left aspect of the thyroid. This does not need further workup during this hospitalization, but I will order a free T3, free T4 for the morning. 5. Atrial fibrillation. The patient is rate controlled and paced. I will continue her normal home medications of amiodarone and Coumadin. I will repeat INR tomorrow. She is currently therapeutic at 3.11. 6. Cardiomyopathy with ejection fraction of 30%. I will continue the patient' s home torsemide, spironolactone, potassium supplements. 7. Autonomic dysfunction. I will continue the patient's home midodrine. I do not believe this episode to be a simple case of syncope. 8. History of cerebrovascular accident. The patient does not have take aspirin as she is on Coumadin. I will continue her home Lipitor. 9. DVT prophylaxis: The patient is currently therapeutic on Coumadin. I will continue her home Coumadin as previously stated and therefore, further chemical prophylaxis is not indicated at this time. Of note, the patient does have petechiae; however, her H and H is stable and this could be explained by her Coumadin; however, this is within normal limits. 10. FEN. The patient is currently n.p.o. pending swallow evaluation by nursing and if the patient passes the swallow eval, she will be able to have a regular unrestricted diet. 11. Code status. The patient is a full code. Should the patient need a surrogate decision maker, she would like her son, Santhosh Licea, to make medical decisions for her. His phone number is [phone]. TIME SPENT: Approximately 60 minutes was spent on this admission. This case has been reviewed by my attending, Dr. Keshav Arauz, and he agrees with this assessment and plan of care. CRISSY MOSLEY [id number]/[facility] #: [id number] [facility] HOSPITALAnmol
[2019-01-28] MEDS: Levothyroxine TAB* 125 MCG TAB PO SCH (06:14)
[2019-01-28 06:38] LABS: ABS Basophils 0.1 10^3/ul (0-0.2); ABS Lymphocytes 1.6 10^3/ul (1.0-4.8); ABS Monocytes 0.6 10^3/ul (0-0.8); Eosinophil % 0.3 %; Hematocrit 33 % (35-47); Hemoglobin 11.8 g/dL (12.0-16.0); Lymphocyte % 15.3 %; Mean Corpuscular HGB Conc 35 g/dL (31-36); Mean Corpuscular Hemoglobin 35 pg (27-31); Mean Corpuscular Volume 98 fL (80-97); Mean Platelet Volume 8.6 fL (7.4-10.4); Platelet Count 215 10^3/uL (150-450); Red Cell Distribution Width 15 % (10-15); White Blood Count 10.3 10^3/uL (3.5-10.8)
[2019-01-28 06:41] LABS: INR 2.15 (0.82-1.09)
[2019-01-28 06:53] LABS: Albumin 2.6 g/dL (3.2-5.2); Albumin/Globulin Ratio 0.7 (1-3); BUN/Creatinine Ratio 27.1 (8-20); Calcium 8.5 mg/dL (8.6-10.3); EGFR African American 53.2 (>60); Globulin 3.5 g/dL (2-4); Potassium 4.1 mmol/L (3.5-5.0); Total Bilirubin 1.2 mg/dL (0.2-1.0); Total Protein 6.1 g/dL (6.4-8.9)
[2019-01-28 07:15] LABS: Free T4 1.32 ng/dL (0.61-1.12)
[2019-01-28 07:27] LABS: Free T3 1.7 pg/mL (2.5-3.9)
--- NOTE | 2019-01-28 08:22 | PN ---
Subjective Date of Service: 01/28/19 Interval History: 83 F, hx of CHF EF 30%, stroke, Afib, on coumadin, PPM, admitted yesterday for seizure witnessed by her aide.- episode associated with tongue biting and loss of urine. No seizure episodes overnight. No complaints this morning, EEG pending. No chest pain, no headache, no fever, no chills. Objective Active Medications: Acetaminophen (Tylenol Tab*) 650 mg PO Q4H PRN PRN Reason: FEVER/PAIN Al Hydrox/Mg Hydrox/Simethicone (Maalox Plus*) 30 ml PO Q6H PRN PRN Reason: INDIGESTION Amiodarone HCl (Cordarone Tab*) 200 mg PO DAILY [facility] Atorvastatin Calcium (Lipitor*) 20 mg PO DAILY [facility] Baclofen (Lioresal Tab*) 5 mg PO TID [facility] Last Admin: 01/27/19 22:29 Dose: 5 mg Levothyroxine Sodium (Synthroid Tab*) 125 mcg PO DAILY@0600 [facility] Last Admin: 01/28/19 06:14 Dose: 125 mcg Midodrine (Midodrine) 5 mg PO TID [facility]; Protocol Last Admin: 01/27/19 22:29 Dose: 5 mg Nft: Glucosam/Chondr /Collagn/Hyalur [ Glucosamine & Chondroitin Cap] 1 Cap) 1 cap PO 1700 [facility] Ondansetron HCl (Zofran Inj*) 4 mg IV Q4H PRN PRN Reason: NAUSEA/VOMITING Potassium Chloride (Klor Con Er Tab*) 60 meq PO DAILY WITH MEAL [facility] Senna (Senokot Tab*) 1 tab PO BID PRN PRN Reason: CONSTIPATION Spironolactone (Aldactone Tab*) 50 mg PO DAILY [facility] Torsemide (Torsemide) 20 mg PO QAM [facility] Warfarin Sodium (Coumadin Tab(*)) 1 mg PO DAILY@1700 [facility]; Protocol Vital Signs - 8 hr 01/28/19 03:38 Temperature 98.1 F Pulse Rate 81 Respiratory 18 Rate Blood Pressure 122/58 (mmHg) O2 Sat by Pulse 97 Oximetry Oxygen Devices in Use Now: None Appearance: Lying in bed, not in distress Neck: NL Appearance and Movements; NL JVP Respiratory: Clear to Auscultation Cardiovascular: No Edema, - - irregularly irregular. Abdominal: - - Bowel sounds normoactive, distention with fluid wave, not firm. non-tender Extremities: No Edema Skin: No Rash or Ulcers Neurological: Alert and Oriented x 3, NL Sensation, NL Muscle Strength and Tone Result Diagrams: 01/28/19 06:13 01/28/19 06:13 Assess/Plan/Problems-Billing Assessment: 83 year old Female hx of stroke, non-alcoholic cirrhosis, ascites, Atrial fibrillation, EF 30A% PPM, here with one episode of witnessed seizure. - Patient Problems (1) Seizure Current Visit: Yes Status: Acute Code(s): R56.9 - UNSPECIFIED CONVULSIONS SNOMED Code(s): 11832640 Comment: one time episode, CT head with no acute issues, EEG pending f/u with neuro recommendations. ? baclofen reduces seizure threshold? patient does not drive. will monitor. (2) Ascites Current Visit: Yes Status: Acute Code(s): R18.8 - OTHER ASCITES SNOMED Code(s): 721517158 Comment: being worked up as outpatient, had recent paracentesis as well non-alcoholic liver cirrhosis benign exam, no fever, no leukocytosis, doubt SBP (3) Afib Current Visit: No Status: Chronic Priority: High Code(s): I48.91 - UNSPECIFIED ATRIAL FIBRILLATION SNOMED Code(s): 88162470 Comment: rate control on coumadin, goal INR 2-3. (4) CVA (cerebral infarction) Current Visit: No Status: Chronic Code(s): I63.9 - CEREBRAL INFARCTION, UNSPECIFIED SNOMED Code(s): 511245715 Comment: No residual weakness on exam. (5) Hypothyroidism Current Visit: No Status: Chronic Code(s): E03.9 - HYPOTHYROIDISM, UNSPECIFIED SNOMED Code(s): 79172931 Comment: TSH is elevated, getting work up as outpatient, on levothyroxine at 150 mcg. Status and Disposition: awaiting EEG, neuro consultation.
[2019-01-28] MEDS: Potassium Chlor TAB* 20 MEQ TAB.ER PO SCH (09:08)
[2019-01-28] MEDS: Amiodarone TAB* 200 MG PO SCH (09:09)
[2019-01-28] MEDS: Torsemide TAB 10 MG PO SCH (09:09)
[2019-01-28] MEDS: Atorvastatin* 20 MG TAB PO SCH (09:09)
[2019-01-28] MEDS: Spironolactone TAB* 25 MG PO SCH (09:10)
--- NOTE | 2019-01-28 13:56 | CONS ---
CC: Dr. Juares; Dr. Candelario Gurrola; ROCIO Rizvi Guthrie; Dr. Hernandez * CONSULTATION REPORT: DATE OF CONSULT: 01/28/19 PRIMARY CARE PROVIDER: Dr. Juares. REASON FOR CONSULT: Possible seizure. HISTORY OF PRESENT ILLNESS: Ms. De La Paz is a very nice 83-year-old female who has a history of atrial fibrillation with pacemaker in place, a history of cardiomyopathy with a low ejection fraction, a history of autonomic dysfunction with multiple episodes of syncope in the past; now on midodrine, a history of a stroke in the distant past; 2014; previously seen by Dr. Steiner; on Coumadin, a history of ascites which is a rather new development; currently being worked up by Dr. Rodriguez; [facility] in [place]. The patient presented yesterday after having a seizure at [facility]. Apparently, she was shopping, she was in her usual state of health. During the time she was shopping with her aide, she started to feel more tired. She subsequently sat down on her walker and had what sounds like a generalized tonic-clonic seizure. It was witnessed by her aide. There was tonic and clonic activity described. She also has loss of bladder control and bit her tongue bilaterally on the sides. She was postictal for some time and in the ER was noted to be very confused with slow clearing. After 3 or 4 hours , she was beginning to clear up and by about 8 hours, she was back to her baseline. It was felt that she was likely postictal. The patient denies any history of previous seizures, although she has a long history of vasovagal syncope. This has been witnessed in the past. Some of her episodes have been very short, lasting under a minute. Several episodes have lasted up to 2 minutes per the daughter. She has fallen multiple times with injuries including her right humerus. She has been noted to have hypotension and autonomic dysfunction and has been put on midodrine. Since last September 2017, she has not had any further syncopal events. She follows closely with Dr. Hernandez and I did speak with Dr. Hernandez this morning who feels fairly confident that the patient does indeed have vasovagal syncope, which has been well documented in the past. The patient denies any history of previous severe head trauma and any history of meningitis, any history of issues. She has no family history of seizures that she is aware of. She has been seen and evaluated recently for her ascites. She had a recent paracentesis back in December and 5.25 L were removed that accumulated by 10 days and is currently being worked up for this. It was thought that this could be related to her congestive heart failure, although it is unclear at this time. The patient denies any recent headaches, fevers, neck stiffness, illnesses. She denies any chest pain or shortness of breath above her baseline. She denies any vision changes. She does have some baseline residual left-sided weakness from her prior stroke, but this has been back to her baseline as well. This morning, the patient seems to be doing better. She has had no seizure-like activity overnight, no major telemetry events, and seemed to be somewhat surprised at the event. She did not fall and hit her head yesterday. She did have a CT of the brain done yesterday in the ER, which showed no acute changes. Some atrophy and chronic white matter changes were noted. PAST MEDICAL HISTORY: As noted above. In addition, she has a history of thyroid issues; followed by Dr. Gurrola, a history of tachybrady syndrome, several fractures in the past; most recently in September 2017, stroke in the past, normally ambulates with a walker. MEDICATIONS: Current medications include: 1. Tylenol. 2. Maalox. 3. Amiodarone 200 mg daily. 4. Lipitor 20 mg p.o. daily. 5. Levothyroxine 125 mcg daily. 6. Midodrine 5 mg p.o. t.i.d. 7. Chondroitin sulfate. 8. Zofran 4 mg q.4 hours p.r.n. for nausea. 9. Potassium chloride. 10. Senna. 11. Spironolactone 50 mg p.o. daily. 12. Torsemide 20 mg p.o. daily. 13. Warfarin 1 mg daily at 5 o'clock. 14. She was on baclofen as well 5 mg p.o. t.i.d. FAMILY HISTORY: Significant for mitral valve repair and issues in her mother, father with asbestosis and lung cancer. SOCIAL HISTORY: Former home school teacher. She lives with her partner. Former smoker, none recently. She has moderate alcohol use in the past, but none recently. She states that she has not used alcohol for several years in a meaningful way. No illicit substance use. REVIEW OF SYSTEMS: Review of systems in 14-organ systems as noted above in the HPI; otherwise, negative. PHYSICAL EXAM: She is well dressed, well nourished. Her daughter is at the bedside. She is pleasant. HEENT: She is normocephalic, atraumatic. Sclerae are anicteric. Mucous membranes are moist. Oropharynx is clear. Nares are patent. Neck: Supple. No thyromegaly. No carotid bruits. No meningismus. Chest: Clear to auscultation bilaterally. Cardiovascular: Currently, regular rate and rhythm. No murmurs. Abdomen: Nontender, but she does have significant distention when she is not tense. No rebound tenderness. Extremities: There is no significant clubbing or cyanosis. Some mild edema in the feet bilaterally. On neurologic exam, she is awake, alert, and oriented x3. Her speech is fluent. There is no dysarthria. Repetition is intact. Recall of recent and remote events is generally intact, although she has poor insight into the event yesterday. Cranial Nerves: Pupils are equally round and reactive to light and accommodation. Extraocular muscles are intact. No diplopia, no nystagmus noted. No ptosis is noted. Facial sensation is intact to light touch. Face is symmetric. Her hearing is intact bilaterally. Palate raises symmetrically. Tongue is midline. Motor Exam: She spontaneously moves all extremities antigravity. She has some limited range of motion in the right upper extremity, but no pain and this is mild in nature. She has generally 5/5 strength throughout with some mild drift in the left upper and lower extremities , which she states is chronic in nature. Her tone is normal. Sensation: She states is intact to light touch and pinprick throughout. No focal deficits. DTRs: She has 1+ at the right biceps, 2+ at the left biceps, 1+ at the right patella, 2+ at the left patella; ankles are absent. She has equivocal Babinski' s bilateral. [id number] and rapid alternating movements are generally intact. No dysdiadochokinesia or dysmetria. No resting or action tremors were noted. Gait: Was not tested at this time. Her skin is warm and dry with some petechial lesions scattered across her arms. No nail bed lesions apparent. DIAGNOSTIC STUDIES/LAB DATA: Lab work includes CBC with diff with a RBC of 3.40 , hemoglobin of 11.8, hematocrit of 33, platelet count of 215, absolute neutrophils of 8.0. INR of 2.15. Chemistry with a BUN of 32, creatinine of 1.18, glucose of 113, calcium of 8.5, total bilirubin of 1.20, total protein of 6.1, albumin of 2.6. TSH of 24.63, free T4 of 1.32, free T3 of 1.70. Urine showed 1+ leukocyte esterase, 3+ wbc's. Diagnostic imaging done. As noted above, CT scan showed no acute changes. IMPRESSION AND PLAN: Ms. De La Paz is an 83-year-old female with a very complicated medical history as noted above who presents to the hospital with what appears to be a seizure-like episode. The semiology is consistent with seizure with loss of consciousness, confusion, tongue biting, and bladder incontinence. She has a history of multiple vasovagal type episodes in the past with syncope, which seemed to be well documented and it is fairly clear that she has a history of syncope with autonomic dysfunction. She has done better since being placed on midodrine. She also has a pacemaker in place. 1. Seizure. Based on the semiology, I am fairly certain that this was a seizure. It is unclear to me why she may have had a seizure. She does have a history of prior stroke, although that was subcortical in nature. She is on baclofen, which can lower seizure threshold and I am going to stop that medication as she apparently takes it for some restless leg movements at night, but it is unclear otherwise why she is on it 3 times a day. I think we should stop this medication. I am going to get an EEG to look for underlying seizure activity. Again, I did speak with Dr. Hernandez and reviewed the chart. It appears that her diagnosis of vasovagal syncope is consistent with her history, but I worry that she may have an overlying seizure history as well, although the semiology in the past is unclear. For now, I am not going to start her on any seizure medication as this is her only documented seizure. Should she have another seizure, we will need to add a medication. Should she have any EEG changes, we will need to add a medication. Regarding the possibility of syncope , the duration of the event seems to be inconsistent. With that said, I think that we should monitor orthostatic blood pressures and I would recommend getting her pacemaker interrogated to look for any evidence of abnormal arrhythmias, which could cause syncopal-like episode. I will continue close neuro checks and I will make further recommendations after her EEG is complete. I will consider starting Keppra should she have another seizure. 2. History of stroke. This seems to be stabilized. I do not think that her most recent event yesterday was related to an underlying cerebrovascular accident. With that said, she does have a history of atrial fibrillation. She is on Coumadin and long term, needs to maximize risk factor control including lipid control, blood pressure control; no evidence of diabetes. She is a nonsmoker. 3. Ascites, unclear etiology. This could be from congestive heart failure, although she is currently being worked up by GI and may need a biopsy at some point. She is not a heavy drinker. I defer to primary team regarding further management. 4. Congestive heart failure. Again, followed by Cardiology, on medication, will be followed by the primary team during her hospitalization. 5. Cardiomyopathy with a low ejection fraction. This is certainly a risk factor for strokes. She is already on Coumadin. This also is a risk for possible arrhythmias. Again, I would continue to monitor on telemetry and check her pacemaker. 6. Autonomic dysfunction. She seems to be better on midodrine. I will continue this and monitor orthostatic blood pressures. 7. Petechiae, unclear etiology. She has adequate platelets, but platelet function may be impaired. I would consider a hematology consult. It is unclear to me whether this could be related to her underlying liver condition. I will continue to follow her during her hospitalization and make further recommendations as necessary. Thank you for the opportunity to participate in the care of this very interesting patient. [id number]/[facility] #: [id number] ABDULLAHI
--- NOTE | 2019-01-28 15:06 | PN ---
Hospitalist Progress Note Date of Service: 01/28/19 Labs reviewed elevated TSH, patient taking levothyroxine 125mcg. Spoke to PCP, patient is seeing endocrinology, and the levothyroxine dose was increased last week by Dr. Gurrola, endocrinology. At this point, continue the current dose with follow up as outpatient.
[2019-01-28] MEDS ORDERED: Warfarin TAB(*) 1 MG PO SCH (17:00)
[2019-01-28] MEDS ORDERED: CHONDR PO SCH (17:00)
[2019-01-28] MEDS ORDERED: [UNRECOGNIZED DRUG - OTHER] PO SCH (17:00)
[2019-01-28] MEDS ORDERED: GLUCOSAM PO SCH (17:00)
[2019-01-28] MEDS ORDERED: HYALUR PO SCH (17:00)
[2019-01-28] MEDS ORDERED: Docusate CAP* 100 MG PO PRN (17:47)
[2019-01-29] MEDS: Levothyroxine TAB* 125 MCG TAB PO SCH (05:21)
[2019-01-29 06:49] LABS: ABS Eosinophils 0.1 10^3/ul (0-0.6); ABS Lymphocytes 1.8 10^3/ul (1.0-4.8); ABS Monocytes 0.6 10^3/ul (0-0.8); ABS Neutrophils 6.6 10^3/ul (1.5-7.7); Eosinophil % 1.2 %; Hematocrit 31 % (35-47); Hemoglobin 10.9 g/dL (12.0-16.0); Lymphocyte % 19.3 %; Mean Corpuscular HGB Conc 35 g/dL (31-36); Mean Corpuscular Hemoglobin 34 pg (27-31); Mean Corpuscular Volume 97 fL (80-97); Mean Platelet Volume 8.6 fL (7.4-10.4); Nucleated Red Blood Cells % 0.1; Platelet Count 208 10^3/uL (150-450); Red Cell Distribution Width 16 % (10-15); White Blood Count 9.1 10^3/uL (3.5-10.8)
[2019-01-29 06:55] LABS: INR 2.48 (0.82-1.09)
--- NOTE | 2019-01-29 08:31 | PN ---
Subjective Date of Service: 01/29/19 Length of Stay: 2 Days Interval History: No new issues overnight. She feels better this am. No further seizure like activity. She was able to get up and ambulate with her walker. Her daughter is at the bedside. She is anxious to go home. No further episodes of urinary incontinence. No lightheadedness, no chest pains or palpitations. She feels back to her "normal self." EEG: Pending Family History: Unchanged from Admission Social History: Unchanged from Admission Past Medical History: Unchanged from Admission Objective Active Medications: Acetaminophen (Tylenol Tab*) 650 mg PO Q4H PRN PRN Reason: FEVER/PAIN Al Hydrox/Mg Hydrox/Simethicone (Maalox Plus*) 30 ml PO Q6H PRN PRN Reason: INDIGESTION Amiodarone HCl (Cordarone Tab*) 200 mg PO DAILY [facility] Last Admin: 01/28/19 09:09 Dose: 200 mg Atorvastatin Calcium (Lipitor*) 20 mg PO DAILY [facility] Last Admin: 01/28/19 09:09 Dose: 20 mg Docusate Sodium (Colace Cap*) 100 mg PO BID PRN PRN Reason: CONSTIPATION Last Admin: 01/28/19 20:21 Dose: 100 mg Levothyroxine Sodium (Synthroid Tab*) 125 mcg PO DAILY@0600 [facility] Last Admin: 01/29/19 05:21 Dose: 125 mcg Midodrine (Midodrine) 5 mg PO TID [facility]; Protocol Last Admin: 01/28/19 20:21 Dose: 5 mg Nft: Glucosam/Chondr /Collagn/Hyalur [ Glucosamine & Chondroitin Cap] 1 Cap) 1 cap PO 1700 [facility] Last Admin: 01/28/19 17:00 Dose: Not Given Ondansetron HCl (Zofran Inj*) 4 mg IV Q4H PRN PRN Reason: NAUSEA/VOMITING Potassium Chloride (Klor Con Er Tab*) 60 meq PO DAILY WITH MEAL [facility] Last Admin: 01/28/19 09:08 Dose: 60 meq Senna (Senokot Tab*) 1 tab PO BID PRN PRN Reason: CONSTIPATION Spironolactone (Aldactone Tab*) 50 mg PO DAILY [facility] Last Admin: 01/28/19 09:10 Dose: 50 mg Torsemide (Torsemide) 20 mg PO QAM [facility] Last Admin: 01/28/19 09:09 Dose: 20 mg Warfarin Sodium (Coumadin Tab(*)) 1 mg PO DAILY@1700 [facility]; Protocol Last Admin: 01/28/19 17:01 Dose: 1 mg Vital Signs 01/28/19 01/28/19 01/28/19 08:22 11:30 15:46 Temperature 97.6 F 97.8 F Pulse Rate 60 62 74 Respiratory 14 16 Rate Blood Pressure 116/54 110/50 120/56 (mmHg) O2 Sat by Pulse 95 96 Oximetry 01/28/19 01/28/19 01/29/19 19:46 23:49 03:33 Temperature 98.1 F 98.4 F 97.9 F Pulse Rate 64 62 60 Respiratory 16 20 18 Rate Blood Pressure 118/58 124/58 111/61 (mmHg) O2 Sat by Pulse 95 95 99 Oximetry Intake and Output Last 24 Hours 01/27/19 01/28/19 01/29/19 01/30/19 06:59 06:59 06:59 06:59 Intake Total 0 480 Output Total 200 Balance -200 480 Weight 144 lb 8 oz Intake: Oral 0 480 Output: Urine 200 Other: Estimated Void Large Medium # Bowel Movements 0 Estimated Stool Amount Large # Voids 1 1 Oxygen Devices in Use Now: None Neurology Exam: General: Well nourished, well developed, and in no acute distress HEENT: Normocephalic/atraumatic, sclera anicteric, mucous membranes moist Neck: Supple Chest: Clear to auscultation bilaterally Cardiovascular: Regular rate and rhythm without murmurs, rubs, gallops Abdomen: Soft, non-tender/non-distended Extremities: No clubbing, cyanosis, or edema Skin: Petechiae on the arms bilaterally Neurological Findings: Awake, alert, and oriented to person, place, and time. Speech: fluent without dysarthria, repetition intact Cranial Nerve: PERRL, EOM intact, VFF, no nystagmus, face symmetric bilaterally , facial sensation intact, hearing intact to finger rub bilaterally, palate elevates symmetrically, tongue midline, SCM and Trapezius s/s. Motor: 5/5 upper extremities with good tone and bulk, no drift. 4+/5 left HF, otherwise 5/5 LEs Sensation: intact to LT/PP bilaterally upper and lower extremities Deep Tendon Reflex: 1+ symmetric in the upper/lower extremities except 2+ left patella, Babinski - equivocal Finger to nose, rapid alternating movements intact without tremor Result Diagrams: 01/29/19 06:10 01/28/19 06:13 Assessment/Plan Assessment: IMPRESSION AND PLAN: Ms. De La Paz is an 83-year-old female with a very complicated medical history as noted above who presents to the hospital with what appears to be a seizure-like episode. The semiology is consistent with seizure with loss of consciousness, confusion, tongue biting, and bladder incontinence. She has a history of multiple vasovagal type episodes in the past with syncope, which seemed to be well documented and it is fairly clear that she has a history of syncope with autonomic dysfunction. She has done better since being placed on midodrine. She also has a pacemaker in place. 1. Seizure: I have little doubt, given semiology that she had a GTC seizure. It remains unclear to me if at least some of her past "syncopal" episodes may have been seizures, although she has a well-documented history of orthostasis and vasovagal syncope and has done much better on Midodrine. I do not have enough evidence to identify seizures in the past based on described semiology. --I am hesitant to start anti-seizure medication based on what we know right now. If her EEG shows abnormality, then I think seizure med is appropriate --If necessary, I would start Keppra as it is excreted by the kidney. In light of her liver issues, this would be preferable. She has no history of any recent severe depression. --If she has another seizure like episode, I would start her on medication as well --I have discontinued Baclofen as it can lower seizure threshold. She has been on it for years after stroke for some "leg movements" but is no longer symptomatic --Will follow up EEG today with further recs to follow 2. History of Stroke, low EF, A.fib. On coumadin. Continue secondary stroke risk factor reduction: BP control, Statin for dyslipidemia, non-smoker 3. A.fib and Cartiomyopathy with low EF with CHF: Updated Dr. Hernandez yesterday, she follows closely with her. Unclear if CHF might be cause of her ascites 4. Ascites: GI is following and she is currently being worked up. No history of recent EtOH use. 5. Petechiae: unclear etiology. No thrombocytopenia. May have platelet dysfunction. Consider hematology evaluation 6. Autonomic dysfunction: On midodrine and seems to have stabilized. No syncopal events in over a year Will make final recs about AED once EEG is done. Neurologically she seems stable and may be able to go home later today. We discussed seizure precautions yesterday including no driving (she does not drive), no heights, no heavy machinery, no swimming alone, no baths, only showers, and avoidance of open flames. I would like to see her back in my clinic as an outpatient, please schedule with me or David Saavedra in 8 weeks.
[2019-01-29] MEDS: Atorvastatin* 20 MG TAB PO SCH (09:10)
[2019-01-29] MEDS: Potassium Chlor TAB* 20 MEQ TAB.ER PO SCH (09:10)
[2019-01-29] MEDS: Torsemide TAB 10 MG PO SCH (09:11)
[2019-01-29] MEDS: Spironolactone TAB* 25 MG PO SCH (09:11)
[2019-01-29] MEDS: Amiodarone TAB* 200 MG PO SCH (09:11)
[2019-01-29 12:35] VITALS: BP 115/57
--- NOTE | 2019-01-29 13:10 | EEG ---
ELECTROENCEPHALOGRAPHY: DATE OF STUDY: DATE OF DICTATION: 01/29/19 PATIENT OF: CRISSY Lizarraga and Dr. Juares.* HISTORY: This is an 83-year-old woman who on 01/27/19 had an episode of tiredness and confusion with some vomiting and may have had "seizure-like movements." She has had a past history of stroke. MEDICATIONS: Include: 1. Klor-Con. 2. Amiodarone. 3. Atorvastatin. 4. Baclofen. 5. Midodrine. 6. Spironolactone. 7. Torsemide. 8. Coumadin. 9. Levothyroxine. 10. MiraLAX. 11. Zofran. 12. Senna. INTERPRETATION: With the patient awake, background cerebral activity consists of moderate amplitude, posterior dominant 7 to 8 Hz rhythm. At times, she has further slowing into the delta range, but the patient never fell fully asleep. No activation procedures were done. No clear-cut epileptiform potentials or focal abnormalities are present. IMPRESSION: This awake and drowsy EEG shows no major abnormalities. There is mild slowing of the background. Not specific as to the etiology but is consistent with a mild encephalopathy. [id number]/[facility] #: [id number] [facility]
--- NOTE | 2019-01-29 17:10 | DS ---
CC: Dr. Pushpa Juares; Dr. Olayinka Daigle; David Saavedra NP DISCHARGE SUMMARY: DATE OF ADMISSION: 01/27/19 DATE OF DISCHARGE: 01/29/19 REASON FOR THE ADMISSION: Seizure. DISCHARGE DIAGNOSES: 1. Seizure episode x1. 2. History of pacemaker placement. SECONDARY DIAGNOSES: Include: 1. Atrial fibrillation. 2. Hypothyroidism. 3. Ascites that is being worked up as an outpatient. 4. History of stroke. HOSPITAL COURSE: This is an 83-year-old female with past medical history of stroke, nonalcoholic liver cirrhosis, who is admitted to the hospital with a diagnosis of one time episode of seizure. CT of the head was done, which did not show any acute abnormality. Neurological consultation was obtained with Dr. Daigle, and an EEG was ordered. The patient was seen and evaluated by Dr. Daigle, neurologist who recommended discontinuation of her baclofen, which the patient had been taking for her restless leg, as baclofen it reduce the patient's seizure threshold. The patient through the hospital course did not have any seizures. MRI could not be obtained due to the patient's pacemaker status. EEG was read as there is mild slowing of the background but not specific as to the etiology but it is considered with mild encephalopathy. This awake and alert EEG shows no major abnormalities. The recommendation was made to discharge the patient without any antiseizure medication. Should she have any further episodes of seizure, plan was to place her on Keppra. Through the course, her pacemaker was also interrogated, which did not find any abnormality or issues. The patient's TSH was elevated at 25, I discussed the case with her primary care provider who reported to me that her levothyroxine dose was adjusted a week ago. PHYSICAL EXAMINATION: On my examination today, blood pressure is 115/57, heart rate of 59, respiratory rate of 18, saturation of 97% on room air, temperature of 98 Fahrenheit. General: She is lying in bed, in no acute distress. Pupils are equal, round, and reactive to light; atraumatic, normocephalic. The evidence of tongue bite is evident. Heart: Irregularly irregular, no murmurs. Lungs: Clear to auscultation. Neurological: Alert, oriented x3 with no focal neurological deficits. Extremities: There is no lower extremity edema. Abdomen: There is ascites present; however, it is not tense. There is no fever , no abdominal pain. DISCHARGE PLAN: The patient is to be discharged home. DISPOSITION: Home. The patient is to follow up with Dr. David Saavedra on 04/08/19 at 11 a.m. This will be neurology appointment. The patient is to follow up with Dr. Pushpa Juares, the primary care provider in 1 week. The patient was told to return to the emergency room for any headaches, seizures , or if any new symptoms occur. DISCHARGE MEDICATIONS: We have continued all of the patient's home medications. We did not make any adjustment to her home medications. Discharge medications include: 1. Amiodarone 200 mg daily. 2. Atorvastatin 40 mg daily. 3. Glucosamine/chondroitin 1 tablet at 1700 daily. 4. Levothyroxine 125 mcg daily. 5. Midodrine 5 mg 3 times a day. 6. Potassium chloride 64 mg daily with meal. 7. Spironolactone 50 mg daily. 8. Torsemide 20 mg daily. 9. Coumadin 1 mg daily. 10. Tylenol 325 mg every 6 hours as needed for pain, mild pain 1 through 5. 11. Ascorbic acid 1000 mg daily. 12. Vitamin D 2000 units daily. [id number]/[facility] #: [id number] [facility]
--- NOTE | 2019-01-30 20:49 | DS ---
DISCHARGE SUMMARY: ADDENDUM: CONDITION ON DISCHARGE: Fair/stable. [id number] #: [id number]
== END 2019-01-29 18:00 | disposition home or self-care (01) ==
LOC: ED 12:55 → MEDTELE 20:34
PROVIDERS: ADMIT Internal Medicine; ATTEND Internal Medicine
DX: R56.9 Unspecified convulsions (principal); Z95.0 Presence of cardiac pacemaker; I48.0 Paroxysmal atrial fibrillation; E03.9 Hypothyroidism, unspecified; R18.8 Other ascites; I69.354 Hemiplegia and hemiparesis following cerebral infarction affecting left non-dominant side; Z79.01 Long term (current) use of anticoagulants; Z79.899 Other long term (current) drug therapy; R11.2 Nausea with vomiting, unspecified; Z88.2 Allergy status to sulfonamides; I49.5 Sick sinus syndrome; I10 Essential (primary) hypertension; E78.00 Pure hypercholesterolemia, unspecified; Z87.891 Personal history of nicotine dependence; R94.6 Abnormal results of thyroid function studies; Z87.440 Personal history of urinary (tract) infections; Z87.19 Personal history of other diseases of the digestive system; M54.9 Dorsalgia, unspecified; M19.90 Unspecified osteoarthritis, unspecified site; J90 Pleural effusion, not elsewhere classified; G90.4 Autonomic dysreflexia; I07.9 Rheumatic tricuspid valve disease, unspecified; Z85.828 Personal history of other malignant neoplasm of skin
CPT/HCPCS: 36415; 70450; 71045; 80053; 81003; 81015; 83605; 83735; 83880; 84439; 84443; 84481; 84484; 85025; 85610; 87086; 93005; 95816; 96374; 99285; A9270-GY; G0378; G8978-GP-CI; G8979-GP-CI; G8980-GP-CI; J2405